=== PATIENT | male | born 1970 | race Caucasian/White ===

== ENCOUNTER 2023-07-12 10:57 | Emergency (ER) | payer SELFPAY ==
[2023-07-12 12:26] LABS: HEMATOCRIT 29.3 % (38.4-49.7); HEMOGLOBIN 10.2 g/dL (12.9-16.9); MEAN CORPUSCULAR HEMOGLOBIN 34.8 pg (31.6-35.5); MEAN CORPUSCULAR HGB CONC 34.8 g/dL (31.6-35.5); PLATELET COUNT,PLT 159 K/uL (130-375); RED BLOOD CELL COUNT 2.93 M/uL (4.14-5.76); WHITE BLOOD CELL COUNT,WBC 9.2 K/uL (3.2-11.0)
[2023-07-12 12:47] LABS: ALANINE AMINOTRANSFERASE,ALT 39 U/L (12-78); ALBUMIN 2.1 g/dL (3.4-5.0); ALKALINE PHOSPHATASE 82 U/L (46-116); ASPARTATE AMNIOTRANSFERASE,AST 53 U/L (15-37); BILIRUBIN TOTAL 0.8 mg/dL (0.2-1.0); BLOOD UREA NITROGEN,BUN 8 mg/dL (7-18); CALCIUM 8.7 mg/dL (8.5-10.1); CARBON DIOXIDE,CO2 26 mmol/L (21-32); CHLORIDE,CL 101 mmol/L (100-108); CREATININE 1.1 mg/dL (0.8-1.3); EST CRCL DRUG DOSING (CG) 65.61 mL/min; ESTIMATED GFR 80 mL/min (>60); GLUCOSE RANDOM 76 mg/dL (74-106); PROTEIN TOTAL,TP 6.8 g/dL (6.4-8.2); SODIUM,NA 134 mmol/L (140-148)
[2023-07-12 12:58] LABS: A/G RATIO 0.5 (1.2-2.2); ANION GAP 9.8 mmol/L (5.0-14.0); POTASSIUM,K 2.8 mmol/L (3.6-5.2)
[2023-07-12 13:03] LABS: BAND ABSOLUTE MAN 0.74 K/uL; BAND PERCENT MAN 8 % (5-11); EOSINOPHILS ABSOLUTE MAN 0.18 K/uL (0.00-0.40); EOSINOPHILS PERCENT MAN 2 % (2-4); LYMPHOCYTES ABSOLUTE MAN 2.76 K/uL (0.8-3.3); LYMPHOCYTES PERCENT MAN 30 % (24-44); MONOCYTES ABSOLUTE MAN 1.56 K/uL (0.20-0.90); MONOCYTES PERCENT MAN 17 % (2-6); NEUTROPHILS ABSOLUTE MAN 3.96 K/uL (1.0-7.6); SEG NEUTROPHILS PERCENT MAN 43 % (36-66)
[2023-07-12] MEDS: Potassium Chloride 20 MEQ Tab.ER PO ONE (13:18)
[2023-07-12] MEDS: predniSONE 20 MG Tab PO ONE (13:19)
== END 2023-07-12 14:13 | disposition home or self-care (01) ==
LOC: JP.ED 10:57
DX: K52.9 Noninfective gastroenteritis and colitis, unspecified (principal); E87.6 Hypokalemia; J44.0 Chronic obstructive pulmonary disease with (acute) lower respiratory infection; J20.9 Acute bronchitis, unspecified; F17.210 Nicotine dependence, cigarettes, uncomplicated; I10 Essential (primary) hypertension; Z88.0 Allergy status to penicillin; Z86.16 Personal history of COVID-19; Z86.19 Personal history of other infectious and parasitic diseases
CPT/HCPCS: 36415; 71046; 80053; 84145; 85025; 93005; 99285; A9270; J7512